=== PATIENT | female | born 1985 | race American Indian/Alaskan Native ===

== ENCOUNTER 2017-03-13 17:44 | Emergency (ER) | payer MEDICAID, OTHER ==
[2017-03-13 17:53] VITALS: BMI 24.9
[2017-03-13 17:57] VITALS: BP 139/90; PULSE 83; RESP 17; TEMP 98.1; O2SAT 97
--- NOTE | 2017-03-13 20:19 | C.PDOC ---
History Of Present Illness 31 year old female presents to the ED for evaluation of numbness and tingling sensation to her bilateral arms and legs which began around 2-3 days ago. Patient notes symptoms are intermittent and occur spontaneously. She denies fever, chills, cough, neck pain, back pain, use of new medications or rash. Time Seen by Provider: 03/13/17 18:45 Chief Complaint (Nursing): Lower Extremity Problem/Injury History Per: Patient History/Exam Limitations: no limitations Onset/Duration Of Symptoms: Days Current Symptoms Are (Timing): Still Present Additional History Per: Patient Past Medical History Reviewed: Historical Data, Nursing Documentation, Vital Signs Vital Signs: Last Vital Signs Temp 98.1 F 03/13/17 17:53 Pulse 83 03/13/17 17:53 Resp 17 03/13/17 17:53 BP 139/90 03/13/17 17:53 Pulse Ox 97 03/13/17 22:04 - Medical History PMH: No Chronic Diseases Surgical History: No Surg Hx Family History: States: Unknown Family Hx - Social History Hx Alcohol Use: No Hx Substance Use: No - Immunization History Hx Tetanus Toxoid Vaccination: No Hx Influenza Vaccination: No Hx Pneumococcal Vaccination: No Review Of Systems Constitutional: Negative for: Fever, Chills Respiratory: Negative for: Cough Musculoskeletal: Negative for: Neck Pain, Back Pain Neurological: Positive for: Other (numbness and tingling to bilateral arms and legs ) Physical Exam - Physical Exam Appears: Non-toxic, No Acute Distress Skin: Normal Color, Warm, Dry, No Rash Head: Atraumatic, Normacephalic Eye(s): bilateral: Normal Inspection Ear(s): Bilateral: Normal Nose: Normal, No Discharge Oral Mucosa: Moist Throat: Normal, No Erythema, No Exudate Neck: Supple Chest: Symmetrical, No Deformity, No Tenderness Cardiovascular: Rhythm Regular, No Murmur Respiratory: Normal Breath Sounds, No Rales, No Rhonchi, No Wheezing Back: No Vertebral Tenderness, No Paraspinal Tenderness Extremity: Normal ROM, No Tenderness, Capillary Refill (less than 2 seconds ), No Deformity, No Swelling Neurological/Psych: Oriented x3, Normal Speech, Normal Cognition, Normal Motor, Normal Sensation Gait: Steady ED Course And Treatment O2 Sat by Pulse Oximetry: 97 (on RA) Pulse Ox Interpretation: Normal Medical Decision Making Medical Decision Making: Finger stick blood glucose measured. On reassessment, patient is resting comfortably, showing no signs of distress and is stable for discharge. Patient is advised to f/u with PMD within 1-2 days for further evaluation and/ or return to the ED if symptoms return or worsen. Disposition - Disposition Referrals: Ralph Gao MD [Staff Provider] - Disposition: HOME/ ROUTINE Disposition Time: 20:17 Condition: GOOD Additional Instructions: Follow up with the medical doctor within 1-2 days. Return if worsened. 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 - Scribe Statement The provider has reviewed the documentation as recorded by the Scribe (Olga Gruber) All medical record entries made by the Scribe were at my direction and personally dictated by me. I have reviewed the chart and agree that the record accurately reflects my personal performance of the history, physical exam, medical decision making, and the department course for this patient. I have also personally directed, reviewed, and agree with the discharge instructions and disposition.
== END 2017-03-13 20:40 | disposition home or self-care (01) ==
LOC: C.ER 17:44
DX: R20.2 Paresthesia of skin (principal)

== ENCOUNTER 2017-08-06 22:08 | Emergency (ER) | payer MEDICAID, OTHER ==
[2017-08-06 22:09] VITALS: BMI 24.9
[2017-08-06 22:25] VITALS: BP 127/83; PULSE 78; RESP 20; TEMP 98.2; O2SAT 98
--- NOTE | 2017-08-06 22:52 | C.PDOC ---
History Of Present Illness 31 year old female presents to the ER with a complaint of pain to the bilateral neck. Patient reports she had two "hickies" to both sides of the neck two days prior, she applied ice to the area, however, she is complaining of pain/ soreness to the external neck and sore throat that began today. Patient denies being placed in a choke hold or other aggressive activities on the neck. Time Seen by Provider: 08/06/17 22:40 Chief Complaint (Nursing): ENT Problem History Per: Patient History/Exam Limitations: None Onset/Duration Of Symptoms: Days Current Symptoms Are (Timing): Still Present Quality (Mouth/Throat): Tenderness Anticoagulant/Antiplatlet Use?: No Past Medical History Reviewed: Historical Data, Nursing Documentation, Vital Signs Vital Signs: Last Vital Signs Temp 98.2 F 08/06/17 22:20 Pulse 78 08/06/17 22:20 Resp 20 08/06/17 22:20 BP 127/83 08/06/17 22:20 Pulse Ox 98 08/06/17 22:52 Family History: States: Unknown Family Hx - Social History Hx Alcohol Use: No Hx Substance Use: No - Immunization History Hx Tetanus Toxoid Vaccination: No Hx Influenza Vaccination: Yes Hx Pneumococcal Vaccination: No Review Of Systems Musculoskeletal: Positive for: Neck Pain Neurological: Negative for: Weakness, Numbness Physical Exam - Physical Exam Appears: Non-toxic Skin: Normal Color, Warm, Dry Head: Atraumatic, Normacephalic Eye(s): bilateral: Normal Inspection Ear(s): Bilateral: Normal Oral Mucosa: Moist Throat: Normal, No Erythema, No Exudate, Other (Uvula midline) Neck: Normal, No Midline Cervical Tenderness, No Paracervical Tenderness, No Step Off Deformity, Supple, No Other (Swelling, hematoma, contusion) Lymphatic: Other (Minimal nontender submandibular nodes) Neurological/Psych: Oriented x3, Normal Speech ED Course And Treatment O2 Sat by Pulse Oximetry: 98 (Room air) Pulse Ox Interpretation: Normal Progress Note: Patient is resting comfortably in the ER in no acute distress, physical exam was normal, vitals are stable, will discharge home with instructed to take NSAIDs as needed, follow up with PMD for further evaluation, and given return precautions. Patient understands and agrees with plan. Disposition - Disposition Referrals: [facility] [Outside] Disposition: HOME/ ROUTINE Disposition Time: 22:49 Condition: STABLE Additional Instructions: May take tylenol or advil for pain Return to ER ifdifficulty swallowing, breathing or worse Instructions: Neck Pain Forms: [facility] (Monegasque) - Clinical Impression Clinical Impression: Neck pain - PA / NUCLEAR MEDICINE PHYSICIAN / Resident Statement MD/DO has reviewed & agrees with the documentation as recorded. - Scribe Statement The provider has reviewed the documentation as recorded by the Scribvania Mccain All medical record entries made by the Rashaadibvania were at my direction and personally dictated by me. I have reviewed the chart and agree that the record accurately reflects my personal performance of the history, physical exam, medical decision making, and the department course for this patient. I have also personally directed, reviewed, and agree with the discharge instructions and disposition.
== END 2017-08-06 22:55 | disposition home or self-care (01) ==
LOC: C.ER 22:08
DX: M54.2 Cervicalgia (principal)

== ENCOUNTER 2017-09-28 16:33 | Emergency (ER) | payer MEDICAID, OTHER ==
[2017-09-28 16:35] VITALS: BMI 24.9
[2017-09-28 16:47] VITALS: TEMP 98.5
--- NOTE | 2017-09-28 18:31 | C.PDOC ---
History Of Present Illness <Mini Olmedo - Last Filed: 09/28/17 18:47> <Ryanne Keller - Last Filed: 09/29/17 04:49> 31 year old female presents to the ED for evaluation after being sent by her OB/ DRILL SHARPENER OPERATOR, Dr. Vick Melgar. Patient states she underwent an elected termination of on 07/14/17. Afterwards, patient did not get her period and underwent a dilation and curettage by her doctor on 09/04/17. Patient was then started on control. Patient states she has been experiencing abdominal cramping and vaginal spotting for the past week. Patient has discontinued control, but her symptoms continue. Patient was sent to the ED by her doctor for an ultrasound. She reports slight vaginal spotting, but denies abdominal pain currently. Patient also denies fever, chills, nausea, vomiting. (Mini Olmedo) History Per: Patient History/Exam Limitations: no limitations Onset/Duration Of Symptoms: Other (1 week ) Current Symptoms Are (Timing): Better Quality Of Discomfort: Cramping, "Pain" Associated Symptoms: denies: Fever, Chills, Nausea, Vomiting Additional History Per: Patient Abnormal Vaginal Bleeding: Yes <Mini Olmedo - Last Filed: 09/28/17 18:47> <Ryanne Keller - Last Filed: 09/29/17 04:49> Time Seen by Provider: 09/28/17 17:35 Chief Complaint (Nursing): Female Genitourinary Past Medical History Reviewed: Historical Data, Nursing Documentation, Vital Signs - Medical History PMH: No Chronic Diseases Surgical History: No Surg Hx Family History: States: Unknown Family Hx - Social History Hx Alcohol Use: No Hx Substance Use: No - Immunization History Hx Tetanus Toxoid Vaccination: No Hx Influenza Vaccination: Yes Hx Pneumococcal Vaccination: No <Mini Olmedo - Last Filed: 09/28/17 18:47> Vital Signs: Last Vital Signs Temp 98.5 F 09/28/17 21:56 Pulse 76 09/28/17 21:56 Resp 16 09/28/17 21:56 BP 117/81 09/28/17 21:56 Pulse Ox 100 09/28/17 21:56 Review Of Systems Constitutional: Negative for: Fever, Chills Gastrointestinal: Positive for: Abdominal Pain. Negative for: Nausea, Vomiting Genitourinary: Positive for: Vaginal Bleeding <Mini Olmedo - Last Filed: 09/28/17 18:47> Physical Exam - Physical Exam Appears: Non-toxic, No Acute Distress Skin: Normal Color, Warm, Dry Head: Atraumatic, Normacephalic Eye(s): bilateral: Normal Inspection Oral Mucosa: Moist Neck: Supple Chest: Symmetrical, No Deformity, No Tenderness Cardiovascular: Rhythm Regular, No Murmur Respiratory: Normal Breath Sounds, No Rales, No Rhonchi, No Wheezing Gastrointestinal/Abdominal: Soft, No Tenderness, No Guarding, No Rebound Extremity: Normal ROM, Capillary Refill (less than 2 seconds ) Neurological/Psych: Oriented x3, Normal Speech, Normal Cognition <Mini Olmedo - Last Filed: 09/28/17 18:47> ED Course And Treatment O2 Sat by Pulse Oximetry: 100 (on RA) Pulse Ox Interpretation: Normal Progress Note: Bloodwork, urinalysis, and Pelvic Ultrasound ordered. <Mini Olmedo - Last Filed: 09/28/17 18:47> - Laboratory Results Result Diagrams: 09/28/17 18:53 09/28/17 18:53 <Ryanne Keller - Last Filed: 09/29/17 04:49> Medical Decision Making <Mini Olmedo - Last Filed: 09/28/17 18:47> <Ryanne Keller - Last Filed: 09/29/17 04:49> Medical Decision Making: Patient is provided with a copy of her ultrasound reports and is advised to follow up with her AD CLERK tomorrow for further evaluation. (Ryanne Keller) Disposition - Disposition Disposition Time: 19:00 <Mini Olmedo - Last Filed: 09/28/17 18:47> <Ryanne Keller - Last Filed: 09/29/17 04:49> - Disposition Referrals: Kelsie Albright MD [Staff Provider] - Disposition: HOME/ ROUTINE Condition: STABLE Instructions: Heavy Periods, Bleeding With Forms: [facility] (Singaporean) Print Language: VIETNAMESE - Clinical Impression Clinical Impression: Vaginal spotting - PA / VIDEO GAME DESIGNER / Resident Statement MD/DO has reviewed & agrees with the documentation as recorded. - Scribe Statement The provider has reviewed the documentation as recorded by the Scribe (Olga Gruber) <Mini Olmedo - Last Filed: 09/28/17 18:47> <Ryanne Keller - Last Filed: 09/29/17 04:49> - Scribe Statement All medical record entries made by the Scribe were at my direction and personally dictated by me. I have reviewed the chart and agree that the record accurately reflects my personal performance of the history, physical exam, medical decision making, and the department course for this patient. I have also personally directed, reviewed, and agree with the discharge instructions and disposition. (Mini Olmedo) Physician Patient Turnover Patient Signed Over To: Ryanne Keller Handoff Comments: pending labs and Pelvis US <Mini Olmedo - Last Filed: 09/28/17 18:47> Addendum <Mini Olmedo - Last Filed: 09/28/17 18:47> <Ryanne Keller - Last Filed: 09/29/17 04:49> Addendum: 09/29/17 04:47 Pt had pelvic US which revealed retained POC's. Spoke with Pts j2ee android developer who asks that we refer pt to his office tomorrow with the US report (Ryanne Keller)
[2017-09-28 18:56] LABS: BASO % 0.7 % (0.0-2.0); EOS % 0.4 % (0.0-4.0); HEMOGLOBIN 13.5 g/dL (11.0-16.0); LYMPH # 1.7 K/uL (1.0-4.3); LYMPH % 28.8 % (20.0-40.0); MEAN CELL VOLUME 90.4 fL (81.0-99.0); MEAN CORPUSCULAR HEMOGLOBIN 30.9 pg (27.0-31.0); MEAN CORPUSCULAR HGB CONC 34.1 g/dL (33.0-37.0); MEAN PLATELET VOLUME 7.4 fL (7.2-11.7); MONO # 0.4 K/uL (0.0-0.8); NEUT # 3.9 K/uL (1.8-7.0); NEUT % 64.1 % (50.0-75.0); NRBC % 0.1 % (0.0-2.0); RBC 4.39 Mil/uL (3.80-5.20); RED CELL DISTRIBUTION WIDTH 13.7 % (11.5-14.5)
[2017-09-28 19:05] LABS: SQUAMOUS EPITHIAL 3 /hpf (0-5); URINE BILIRUBIN NEGATIVE (NEGATIVE); URINE BLOOD 2+ (NEGATIVE); URINE CLARITY Clear (Clear); URINE COLOR Yellow (YELLOW); URINE GLUCOSE (UA) NORMAL (Normal); URINE LEUKOCYTE ESTERASE TRACE Leu/uL (Negative); URINE PROTEIN NEGATIVE (NEGATIVE); URINE UROBILINOGEN NORMAL mg/dL (0.2-1.0)
[2017-09-28 19:06] LABS: HCG,QUALITATIVE URINE NEGATIVE (NEGATIVE)
[2017-09-28 19:09] LABS: ALB/GLOB RATIO 1.2 (1.0-2.1); ALBUMIN 4.7 g/dL (3.5-5.0); ALT/SGPT 30 U/L (9-52); AST/SGOT 25 U/L (14-36); BLOOD UREA NITROGEN 12 mg/dL (7-17); CALCIUM 9.3 mg/dl (8.6-10.4); GFR AFRICAN-AMERICAN > 60; GFR NON-AFRICAN AMERICAN > 60
[2017-09-28 20:52] VITALS: RESP 16
[2017-09-28 21:57] VITALS: BP 117/81; PULSE 76; O2SAT 100
--- NOTE | 2017-09-29 08:32 | US ---
HISTORY: vaginal spotting COMPARISON: None available. TECHNIQUE: Transabdominal and transvaginal FINDINGS: UTERUS: Measures 9.7 x 4.9 x 5.7 cm. Normal in size and appearance. No fibroid or other mass lesion seen. ENDOMETRIUM: Measures 29 mm in diameter. Heterogeneous. Hypervascular. Cannot rule out retained products of conception. CERVIX: No cervical abnormality identified. RIGHT OVARY: Measures 3.3 x 2.4 x 2.4 cm. No solid mass. Normal flow. LEFT OVARY: Measures 3.5 x 2.2 x 2.0 cm. No solid mass. Normal flow. FREE FLUID: No significant free fluid noted. OTHER FINDINGS: None. IMPRESSION: Thickened heterogeneous hypervascular endometrium. Possible retained products of conception. No uterine or ovarian mass identified. Preliminary interpretation of this examination was reported by [facility] at 8:47 p.m. on 09/28/2017. There is concurrence of this report with the preliminary interpretation.
== END 2017-09-28 22:09 | disposition home or self-care (01) ==
LOC: C.ER 16:33
DX: N93.9 Abnormal uterine and vaginal bleeding, unspecified (principal)

== ENCOUNTER 2018-01-22 12:30 | Emergency (ER) | payer MEDICAID ==
[2018-01-22 12:43] VITALS: BMI 26.7
[2018-01-22 12:44] VITALS: BP 124/86; PULSE 99; TEMP 98.2; O2SAT 100
--- NOTE | 2018-01-22 13:17 | C.PDOC ---
History Of Present Illness 32 y/o female presents to the ER complaining that her menstrual period is 6 days late. Patient thinks that she may be . Patient reports that she has nausea. Denies having vomiting, abdominal pain, vaginal bleeding,and vaginal discharge. Time Seen by Provider: 01/22/18 12:49 Chief Complaint (Nursing): Female Genitourinary History Per: Patient History/Exam Limitations: no limitations Onset/Duration Of Symptoms: Hrs Current Symptoms Are (Timing): Still Present Severity: Moderate Past Medical History Reviewed: Historical Data, Nursing Documentation, Vital Signs Vital Signs: Last Vital Signs Temp 98.2 F 01/22/18 12:42 Pulse 99 H 01/22/18 12:42 Resp 18 01/22/18 12:42 BP 124/86 01/22/18 12:42 Pulse Ox 100 01/22/18 12:42 - Medical History PMH: No Chronic Diseases Other Surgeries: Hx of surgeries Family History: States: No Known Family Hx - Social History Hx Alcohol Use: No Hx Substance Use: No - Immunization History Hx Tetanus Toxoid Vaccination: No Hx Influenza Vaccination: Yes Hx Pneumococcal Vaccination: No Review Of Systems Except As Marked, All Systems Reviewed And Found Negative. Constitutional: Negative for: Fever, Chills Gastrointestinal: Positive for: Nausea. Negative for: Vomiting, Abdominal Pain Genitourinary: Negative for: Vaginal Discharge, Vaginal Bleeding Physical Exam - Physical Exam Appears: Non-toxic, No Acute Distress Skin: Normal Color, Warm, Dry, No Rash Head: Atraumatic, Normacephalic Eye(s): bilateral: Normal Inspection Nose: Normal Oral Mucosa: Moist Throat: No Erythema Neck: Normal ROM, Supple Chest: Symmetrical Cardiovascular: Rhythm Regular, No Friction Rub, No Murmur Respiratory: Normal Breath Sounds, No Rales, No Rhonchi, No Wheezing Gastrointestinal/Abdominal: Normal Exam, Soft, No Tenderness, No Guarding, No Rebound Extremity: Normal ROM, No Swelling Neurological/Psych: Oriented x3, Normal Speech Gait: Steady ED Course And Treatment O2 Sat by Pulse Oximetry: 100 (RA) Pulse Ox Interpretation: Normal Medical Decision Making Medical Decision Making: urine POC is negative. The patient has normal physical exam and no further diagnostic testing is required at this time. Disposition - Disposition Referrals: [facility] [Outside] [facility] [Outside] Disposition: HOME/ ROUTINE Disposition Time: 13:15 Condition: STABLE Additional Instructions: Follow up with the OBGYN within 1-2 days, Return if worsened. Instructions: Tests Forms: [employer] (Greenlandic) - Clinical Impression Clinical Impression: test negative - PA / NC MACHINIST / Resident Statement MD/DO has reviewed & agrees with the documentation as recorded. - Scribe Statement The provider has reviewed the documentation as recorded by the Nelly Scott Provider Attestation All medical record entries made by the Nelly were at my direction and p ersonally dictated by me. I have reviewed the chart and agree that the record accurately reflects my personal performance of the history, physical exam, medical decision making, and the department course for this patient. I have also personally directed, reviewed, and agree with the discharge instructions and disposition.
[2018-01-22 13:43] VITALS: RESP 20
== END 2018-01-22 13:42 | disposition home or self-care (01) ==
LOC: C.ER 12:30
DX: Z32.02 Encounter for pregnancy test, result negative (principal)